=== PATIENT | female | born 1945 | race Caucasian/White ===

== ENCOUNTER 2020-05-22 10:41 | Outpatient (CLI) | payer MEDICARE, OTHER, SELFPAY ==
--- NOTE | 2020-05-22 10:53 | MM_ITS ---
WS: [id number] RIGHT DIGITAL MAMMOGRAPHY WITH CAD CLINICAL INFORMATION: ABNORMAL MAMMOGRAM HISTORY: COMPARISON: None. TECHNIQUE: 6 views of the right breast were obtained. FINDINGS: The right breast is composed of heterogeneous fibroglandular density tissue, which can limit the dete ction of small underlying mass lesions. Punctate and vascular calcifications. Previously described ri ght middle third breast asymmetry appears stable. Ultrasound is pending. ULTRASOUND BREAST RIGHT TECHNIQUE: Ultrasound right breast focused area of concern. CLINICAL INFORMATION: ABNORMAL MAMMOGRAM COMPARISON: FINDINGS: Ultrasound right breast at the 12:00 position. Again seen is the oval shaped hypoechoic lesion with s ome internal debris. This is unchanged in appearance measuring 7.6 x 2.4 x 8.3 mm. This is well-circu mscribed and is unchanged. Recommend return to annual screening mammography MM/[place] [id number] IMPRESSION: BI-RADS: 2-Benign FOLLOW UP: 1 Year Follow-up Recommend return to annual screening mammography.
== END 2020-05-22 10:42 | disposition home or self-care (01) ==
LOC: RADSHAW 10:47
PROVIDERS: PCP Family Medicine; Visit Provider Family Medicine
DX: R92.8 Other abnormal and inconclusive findings on diagnostic imaging of breast (principal); N64.89 Other specified disorders of breast
CPT/HCPCS: 76642; 77065

== ENCOUNTER → 2025-07-30 08:40 | Outpatient (BNVA) | payer MEDICARE, OTHER, SELFPAY | PROVIDERS: PCP Family Medicine; Visit Provider Internal Medicine Rheumatology | DX: M05.79 Rheumatoid arthritis with rheumatoid factor of multiple sites without organ or systems involvement (principal); Z79.899 Other long term (current) drug therapy; Z71.85 Encounter for immunization safety counseling; M25.50 Pain in unspecified joint; M81.0 Age-related osteoporosis without current pathological fracture; D64.9 Anemia, unspecified | CPT/HCPCS: 36415; 80076; 82306; 82565; 83540; 83550; 85025; 85651; 86140; 86480; 86704; 86803; 87340; 99204 ==